=== PATIENT | male | born 1950 | race Caucasian/White ===

== ENCOUNTER 2016-06-01 16:30 | Emergency (ER) | payer MEDICARE, BC ==
[~2016-06-01] VITALS: Ht 180.3 cm; Wt 80.0 kg
[~2016-06-01 16:30] MED LIST: CETI10 PO; PROP1TAB PO; TAB-TAB PO; TRAM50TA PO
[2016-06-01 16:31] VITALS: BP 142/76; PULSE 126; RESP 16; TEMP 98.2; O2SAT 95
[2016-06-01 16:39] VITALS: PULSE 72; RESP 16; O2SAT 98
[2016-06-01] MEDS ORDERED: ROBA500T PO (16:58)
[2016-06-01] MEDS ORDERED: IBUP800T23 PO (16:58)
--- NOTE | 2016-06-01 16:59 | PD ---
HPI Chief Complaint: Back/ Neck Pain or Injury Time Seen by Provider: 16:57 Travel History International Travel<30 days: No Contact w/Intl Traveler<30days: No Traveled to known affect area: No History of Present Illness HPI 65-year-old male presents to the emergency Department with complaint of right- sided low back pain for the last 8 or 9 days. Denies injury or strain. Pain sometimes radiates down the back of his right leg, into his buttocks, into his groin area and when the pain is there sometimes into his right testicle. Denies testicular pain without radiation of low back pain. Denies encopresis, incontinence, saddle anesthesias. Denies abdominal pain, nausea, vomiting, change in urine or stool. Denies IV drug use, cancer. Denies fever, chills, nausea, vomiting. Denies paresthesias, loss of sensation, decreased range of motion, decreased strength to bilateral lower extremities. Denies change in gait or difficulty ambulating. Has taken small doses of tramadol with minimal relief of symptoms. Pain is aggravated with sitting, certain movements, laying on his right side. Pain is decreased while laying on his stomach. Allergies to pseudoephedrine, Sudafed, Zofran. Dr. Morley his primary care provider. No other modifying factors or associated signs and symptoms. 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) Hepatitis: No Hiatal Hernia: Yes Immune Disorder: No Musculoskeletal: Yes (L3 STENOSIS /BACK PAIN ) Neurologic: No Psychiatric: No Reproductive: No Respiratory: No Thyroid Disease: No Past Surgical History Abdominal Surgery: Yes (HERNIA REPAIR ) AICD: No Cardiac Surgery: No Ear Surgery: No Endocrine Surgery: No Eye Surgery: No Genitourinary Surgery: No Gynecologic Surgery: Yes (VASECTOMY) Joint Replacement: No Oral Surgery: No Pacemaker: No Thoracic Surgery: No Other Surgery: Yes (VASECTOMY ) Social History Alcohol Use: No Tobacco Use: No Substance Use: No Allergies-Medications (Allergen,Severity, Reaction): Coded Allergies: Pseudoephedrine (Unverified Allergy, Severe, 06/01/16) HALLUCINATIONS AND HIVES/BLISTERS Sudafed (Unverified Allergy, Severe, STOPS BREATHING, 06/01/16) Zofran (Unverified Allergy, Severe, "SEEING THINGS", 06/01/16) Reported Meds & Prescriptions Reported Meds & Active Scripts Active Ibuprofen 800 Mg Tab 800 Mg PO Q8H PRN Robaxin (Methocarbamol) 500 Mg Tab 500 Mg PO QID PRN Tramadol Hcl (Tramadol HCl) 50 Mg Tab 50 Mg PO Q6H PRN Propecia (Finasteride) 1 Mg Tab 1 Mg PO DAILY Reported Multivitamin (Multivitamins) 1 Tab Tab 1 Tab PO DAILY Zyrtec 10 Mg Tab (Cetirizine HCl) 10 Mg Tab 10 Mg PO DAILY Review of Systems Except as stated in HPI: all other systems reviewed are Neg Physical Exam Narrative GENERAL: Well-nourished, well-developed male patient, in no acute distress; afebrile, nontoxic-appearing SKIN: Warm and dry. HEAD: Atraumatic. Normocephalic. EYES: Pupils equal and round. No scleral icterus. No injection or drainage. ENT: Mucosa pink and moist. Airway patent. NECK: Trachea midline. CARDIOVASCULAR: Regular rate. RESPIRATORY: No accessory muscle use. GASTROINTESTINAL: Abdomen soft, non-tender, nondistended. Positive bowel sounds. No hepato-splenomegaly, or palpable masses. No guarding. MUSCULOSKELETAL: Bilateral lower extremities supple and non-tense with 2+ pedal pulses and sensory intact; with full range of motion and 5/5 strength. 2 + DTRs bilaterally. Active dorsiflexion and extension of bilateral feet. Bilateral straight leg raise is negative for low back pain. Ambulatory in room with normal gait. Sitting up in bed at 90. Right hip with full range of motion and without tenderness on abduction or palpation. No obvious deformities. No clubbing. No cyanosis. No edema. BACK: No midline point tenderness on palpation of the lumbar spine. Tenderness on palpation of right iliosacral area. No obvious deformities. NEUROLOGICAL: Awake and alert. Oriented 3. No obvious cranial nerve deficits. Motor grossly within normal limits. Normal speech. Moves all extremities. 5/5 strength to all extremities. Sensory intact. PSYCHIATRIC: Appropriate mood and affect; insight and judgment normal. Data Data Last Documented VS Vital Signs Date Time Temp Pulse Resp B/P Pulse Ox O2 Delivery O2 Flow Rate FiO2 06/01/16 16:39 72 16 98 06/01/16 16:31 98.2 142/76 Room Air Orders Ketorolac Inj (Toradol Inj) (06/01/16 17:00) Orphenadrine Inj (Norflex Inj) (06/01/16 17:00) [facility] Medical Decision Making Medical Screen Exam Complete: Yes Emergency Medical Condition: Yes Medical Record Reviewed: Yes Differential Diagnosis Low back strain, acute low back pain, sciatica Narrative Course 65-year-old male physical examination consistent with acute low back pain with right-sided sciatica. Denies encopresis, incontinence, saddle anesthesias. Patient is ambulatory in the room with a normal gait. No midline point tenderness on palpation of the lumbar spine. Reproducible tenderness to the right iliosacral area. Patient is afebrile and nontoxic-appearing. He denies fever, chills, nausea, vomiting. Denies IV drug use or cancer. Toradol and Norflex administered in the ER. Ibuprofen and Robaxin prescribed for home. Patient verbalizes understanding and agreement with treatment plan. Patient is medically cleared and stable for discharge. Discussed reasons to return to the emergency department. Instructed patient to follow up with primary care provider. Patient agrees with treatment plan. The patients vital signs are stable and the patient is stable for outpatient follow-up and treatment. Patient discharged home, stable and in no acute distress. Diagnosis Primary Impression: Acute low back pain with right-sided sciatica Qualified Code: M54.41 - Acute right-sided low back pain with right-sided sciatica Referrals: Primary Care Physician Patient Instructions: Acute Low Back Pain (ED), General Instructions, Sciatica (ED) Departure Forms: Tests/Procedures, Work Release Enter return to work date: Jun 06, 2016 Additional Instructions: Tylenol or ibuprofen as directed and as needed for pain Robaxin as prescribed and as needed for muscle spasm Heating pad and/or ice to affected area to reduce pain Avoid aggravating activities; increase activity as tolerated Follow-up with primary care provider Return to emergency department immediately with worsening of symptoms Med/Other Pt SpecificInfo: Prescription(s) given Scripts Ibuprofen 800 Mg [id number] Mg PO Q8H PRN (PAIN SCALE 1 TO 10) #30 TAB Ref 0 Prov:Naty Garcia 06/01/16 Methocarbamol (Robaxin)500 Mg Qon149 Mg PO QID PRN (MUSCLE SPASM) #30 TAB Ref 0 Prov:Naty Garcia 06/01/16 Disposition: 01 DISCHARGE HOME Condition: Stable Naty Garcia Jun 01, 2016 16:59
[2016-06-01] MEDS ORDERED: KETOROLAC TROMETHAMINE 60 MG/2 ML (IM) VIAL IM ONE (17:00)
[2016-06-01] MEDS ORDERED: ORPHENADRINE INJ 60 MG/2 ML AMP IM ONE (17:00)
[2016-06-27] MEDS ORDERED: FINA1TAB16 PO (10:23)
== END 2016-06-01 18:40 | disposition home or self-care (01) ==
LOC: NEPB 16:30
DX: M54.41 Lumbago with sciatica, right side (principal)
CPT/HCPCS: 96372; 99283; J1885; J2360

== ENCOUNTER 2017-04-14 23:51 | Emergency (ER) | payer MEDICARE, BC ==
[~2017-04-14] VITALS: Ht 180.3 cm; Wt 80.0 kg
[~2017-04-14 23:51] MED LIST changes: -CETI10 PO; +FINA1TAB16 PO; +FLUT1SPR5 EACH NARE; +GABA100C4 PO; +IBUP1TAB5 PO; +IOHEXOL 350 MG/ML 10 ML VIAL (for RAD DIAG) IVCONTRAST ONE; -PROP1TAB PO; -TAB-TAB PO; -TRAM50TA PO
[2017-04-15 00:15] VITALS: BP 132/85; PULSE 78; RESP 18; TEMP 98.4; O2SAT 98
[2017-04-15] MEDS ORDERED: SODIUM CHLOR 0.9% 1000 ML INJ 1,000 ML IV ONE (00:15)
[2017-04-15 00:30] LABS: AUTOMATED NEUTROPHIL # 2.4 TH/MM3 (1.8-7.7); BASOPHIL % 0.3 % (0.0-2.0); EOSINOPHIL # 0.1 TH/MM3 (0-0.4); EOSINOPHIL % 1.4 % (0.0-4.0); HEMATOCRIT 43.6 % (39.0-51.0); HEMOGLOBIN 14.9 GM/DL (13.0-17.0); LYMPH % 31.5 % (9.0-44.0); LYMPHOCYTE # 1.4 TH/MM3 (1.0-4.8); MEAN CELL VOLUME 92.9 FL (80.0-100.0); MEAN CORPUSCULAR HEMOGLOBIN 31.6 PG (27.0-34.0); MEAN CORPUSCULAR HGB CONC 34.1 % (32.0-36.0); MEAN PLATELET VOLUME 7.9 FL (7.0-11.0); MONO % 11.1 % (0.0-8.0); MONOCYTE # 0.5 TH/MM3 (0-0.9); NEUT % 55.7 % (16.0-70.0); PLATELET COUNT 195 TH/MM3 (150-450); RED CELL DISTRIBUTION WIDTH 12.4 % (11.6-17.2); WHITE BLOOD COUNT 4.3 TH/MM3 (4.0-11.0)
[2017-04-15] MEDS ORDERED: PIPERACIL-TAZO 4.5 GM PREMIX 100 ML IV ONE (00:30)
--- NOTE | 2017-04-15 00:37 | PD ---
HPI Chief Complaint: Abdominal Pain Time Seen by Provider: 00:09 Travel History International Travel<30 days: No Contact w/Intl Traveler<30days: No Traveled to known affect area: No History of Present Illness HPI 66-year-old white male presents to emergency Department with complaints of abdominal pain. He states that he started off with some mild upper abdominal discomfort this morning. He states that the pain now has progressively intensified. It has been waxing and waning in intensity. He states the pain is moderate and rates the pain a 4-5/10. The pain now seems to be traveling across the left upper abdomen. Patient states that he has had a history of diverticulitis in the past and that this seems reminiscent of a episode of the past. He admits to some nausea but no vomiting. He's had a slight decrease in appetite. He denies any fever or chills. No chest pain or shortness of breath. No dysuria, frequency, melena, hematochezia, diarrhea. No testicular or scrotal pain. No alleviating or exacerbating activities. Patient does make note that he had just gotten over flu like symptoms this past week. This had just gotten better yesterday PFSH Past Medical History Narrative Medical Renal cyst with removal, Diverticulitis, hiatal hernia, spinal stenosis Cancer: No Cardiovascular Problems: No Diabetes: No Diminished Hearing: No Endocrine: No Gastrointestinal Disorders: Yes (HERNIA) Genitourinary: Yes (CYST ON KIDNEY) Hepatitis: No Hiatal Hernia: Yes Immune Disorder: No Musculoskeletal: Yes (L3 STENOSIS /BACK PAIN ) Neurologic: No Psychiatric: No Reproductive: No Respiratory: No Tetanus Vaccination: < 5 Years Past Surgical History Narrative Surgical Renal cyst with surgical removal, bilateral herniorrhaphy Abdominal Surgery: Yes ("HERNIA REPAIR X2, KIDNEY CYST") AICD: No Cardiac Surgery: No Ear Surgery: No Endocrine Surgery: No Eye Surgery: No Genitourinary Surgery: No Gynecologic Surgery: Yes (VASECTOMY) Joint Replacement: No Oral Surgery: No Pacemaker: No Thoracic Surgery: No Other Surgery: Yes (VASECTOMY ) Social History Alcohol Use: No Tobacco Use: No Substance Use: No Allergies-Medications (Allergen,Severity, Reaction): Coded Allergies: ondansetron (Unverified Allergy, Severe, "SEEING THINGS", 04/14/17) pseudoephedrine (Unverified Allergy, Severe, STOPS BREATHING, 04/14/17) HALLUCINATIONS AND HIVES/BLISTERS Reported Meds & Prescriptions Reported Meds & Active Scripts Active Gabapentin 100 Mg Cap 100 Mg PO BID Ibuprofen 400 Mg Tab 400 Mg PO Q8H PRN Flonase Nasal Starke (Fluticasone Nasal Starke) 50 Mcg/Act Starke 100 Mcg EACH NARE BID Finasteride (Finasteride (Alopecia)) 1 Mg Tab 1 Mg PO DAILY Review of Systems Except as stated in HPI: all other systems reviewed are Neg Physical Exam Narrative GENERAL: Well-developed, well-nourished in no apparent distress. Nontoxic appearing. HEAD: Normocephalic, atraumatic. EYES: Pupils equal round and reactive. Extraocular motions intact. No scleral icterus. No injection or drainage. ENT: Nose clear. Throat without erythema, tonsillar hypertrophy or exudate. Uvula midline. Airway patent. NECK: Trachea midline. Supple, nontender, moves head freely. No central bony tenderness or spasm. CARDIOVASCULAR: Regular rate and rhythm without murmurs, gallops, or rubs. RESPIRATORY: Clear to auscultation. Breath sounds equal bilaterally. No wheezes , rales, or rhonchi. GASTROINTESTINAL: Abdomen soft, mild tenderness in the epigastric and left upper quadrant to deep palpation, nondistended. No hepato-splenomegaly, or palpable masses. No guarding. EXTREMITIES: No clubbing, cyanosis, or edema. No joint tenderness. BACK: Nontender without deformity. No flank tenderness. NEUROLOGICAL: Awake, alert and oriented x 3 .Cranial nerves grossly intact. Motor and sensory grossly within normal limits. Normal speech. Data Data Last Documented VS Vital Signs Date Time Temp Pulse Resp B/P (MAP) Pulse Ox O2 Delivery O2 Flow Rate FiO2 04/15/17 00:15 98.4 78 18 132/85 (101) 98 Orders Orders Electrocardiogram (04/15/17 00:10) Complete Blood Count With Diff (04/15/17 00:10) Comprehensive Metabolic Panel (04/15/17 00:10) Lipase (04/15/17 00:10) Urinalysis - C+S If Indicated (04/15/17 00:10) Iv Access Insert/Monitor (04/15/17 00:10) Ecg Monitoring (04/15/17 00:10) Sodium Chlor 0.9% 1000 Ml Inj (Ns 1000 M (2/3/18 00:15) Fentanyl Inj (Fentanyl Inj) (04/15/17 00:30) Piperacil-Tazo 4.5 Gm Premix (Zosyn 4.5 (04/15/17 00:30) Labs Laboratory Tests Test 04/15/17 00:15 White Blood Count 4.3 TH/MM3 Red Blood Count 4.70 MIL/MM3 Hemoglobin 14.9 GM/DL Hematocrit 43.6 % Mean Corpuscular Volume 92.9 FL Mean Corpuscular Hemoglobin 31.6 PG Mean Corpuscular Hemoglobin Concent 34.1 % Red Cell Distribution Width 12.4 % Platelet Count 195 TH/MM3 Mean Platelet Volume 7.9 FL Neutrophils (%) (Auto) 55.7 % Lymphocytes (%) (Auto) 31.5 % Monocytes (%) (Auto) 11.1 % Eosinophils (%) (Auto) 1.4 % Basophils (%) (Auto) 0.3 % Neutrophils # (Auto) 2.4 TH/MM3 Lymphocytes # (Auto) 1.4 TH/MM3 Monocytes # (Auto) 0.5 TH/MM3 Eosinophils # (Auto) 0.1 TH/MM3 Basophils # (Auto) 0.0 TH/MM3 CBC Comment DIFF FINAL Differential Comment MDM Medical Decision Making Medical Screen Exam Complete: Yes Emergency Medical Condition: Yes Medical Record Reviewed: Yes Differential Diagnosis MDM: High Differential diagnoses: Acute appendicitis, acute pancreatitis, diverticulitis, colitis Narrative Course IV access is obtained. Patient is given a liter bolus normal saline, Zofran 4 mg IV, 25 g of fentanyl IV, Zosyn 4.5 g IV. Routine laboratory tests including a UA, CBC, chemistry and CT of the abdomen Soy Brown Apr 15, 2017 00:37
[2017-04-15 00:48] LABS: AST (GOT) 18 U/L (15-37); BICARBONATE 34.7 MEQ/L (21.0-32.0); BLOOD UREA NITROGEN 11 MG/DL (7-18); CALCIUM 9.2 MG/DL (8.5-10.1); CHLORIDE 99 MEQ/L (98-107); CREATININE 0.82 MG/DL (0.60-1.30); GLOMERULAR FILTRATION RATE 93 ML/MIN (>89); GLUCOSE,RANDOM 103 MG/DL (74-106); SODIUM (NA) 139 MEQ/L (136-145)
[2017-04-15 00:51] LABS: ALKALINE PHOSPHATASE 44 U/L (45-117); ALT (GPT) 19 U/L (12-78); TOTAL BILIRUBIN ADULT 0.7 MG/DL (0.2-1.0); TOTAL PROTEIN 7.3 GM/DL (6.4-8.2)
[2017-04-15 01:05] LABS: BILIRUBIN, URINE NEG (NEG); BLOOD, URINE NEG (NEG); GLUCOSE,URINE NEG (NEG); KETONE, URINE NEG (NEG); NITRITE,URINE NEG (NEG); URINE COLOR YELLOW (YELLW/STRAW); URINE LEUKOCYTE ESTERASE NEG (NEG)
[2017-04-15] MEDS ORDERED: IOHEXOL 350 MG/ML 10 ML VIAL (for RAD DIAG) IVCONTRAST ONE (02:41)
--- NOTE | 2017-04-15 02:53 | RADRPT ---
EXAM DATE/TIME: 04/15/2017 02:36 [place] COMPARISON: No previous studies available for comparison. INDICATIONS : Left sided abdominal pain. IV CONTRAST: 97 cc Omnipaque 350 (iohexol) IV ORAL CONTRAST: No oral contrast ingested. RADIATION DOSE: 6.64 CTDIvol (mGy) MEDICAL HISTORY : Hernia, hiatal. SURGICAL HISTORY : Hernia repair. ENCOUNTER: Initial ACUITY: 1 day PAIN SCALE: 8/10 LOCATION: Left abdomen TECHNIQUE: Volumetric scanning of the abdomen and pelvis was performed. Using automated exposure control and ad justment of the mA and/or kV according to patient size, radiation dose was kept as low as reasonably achievable to obtain optimal diagnostic quality images. DICOM format image data is available electro nically for review and comparison. FINDINGS: A calcified granuloma is noted in the right middle lobe measuring 9.5 mm. No pleural or pericardial e ffusions are seen. Hepatic steatosis. The spleen, pancreas, adrenals, gallbladder unremarkable. Benig n appearing cyst upper pole right kidney measuring 2.9 cm. There is also a large simple cyst off the right lower pole laterally measuring 6.7 cm. At the upper pole of the left kidney a mixed attenuation mass is identified measuring 3.6 x 3.6 cm in transverse and AP dimension. There is a remote history of CT-guided alcohol ablation of a left renal mass. There is a fat fluid level seen within the urinar y bladder. There is diverticulosis of the sigmoid colon and descending colon without evidence of dive rticulitis. Appendix is normal. Prostate measures 5 x 3.6 cm in transverse and AP dimension. There is circumferential bowel wall thickening seen at the level of the rectum which may reflect a colitis. O sseous structures are intact. CONCLUSION: Abnormal bowel wall thickening involving the rectum identified which can be seen with a colitis. Dive rticulosis is also seen of the sigmoid and descending colon. Renal cysts. Atherosclerosis. Fat fluid level is seen within the urinary bladder characteristic of chyluria. Alvaro Hogue MD on April 15, 2017 at 2:45 Board Certified Radiologist. This report was verified electronically.
[2017-04-15] MEDS ORDERED: AUGM875T3 PO (03:07)
[2017-04-15] MEDS ORDERED: METR-1 PO (03:07)
[2017-04-15] MEDS ORDERED: DEXAMETHASONE SOD PHOS 20 MG/5 ML VIAL IV PUSH ONE (03:15)
--- NOTE | 2017-04-15 13:54 | EKG ---
Date Performed: 04/15/2017 Time Performed: 00:32:12 PTAGE: 66 years EKG: SINUS BRADYCARDIA WITH OCCASIONAL SUPRAVENTRICULAR PREMATURE COMPLEXES INCOMPLETE RIGHT BUN DLE BRANCH BLOCK BORDERLINE ECG NO PREVIOUS TRACING DOCTOR: Ken Dacosta Interpretating Date/Time 04/15/2017 13:54:22
== END 2017-04-15 03:19 | disposition home or self-care (01) ==
LOC: NEPD 23:51
DX: K57.92 Diverticulitis of intestine, part unspecified, without perforation or abscess without bleeding (principal); K52.9 Noninfective gastroenteritis and colitis, unspecified; R94.31 Abnormal electrocardiogram [ECG] [EKG]; Z88.8 Allergy status to other drugs, medicaments and biological substances
CPT/HCPCS: 74177; 80053; 81001; 83690; 85025; 93005; 96361; 96365; 96375; 99285; J1100; J2543; J3010; J7030; Q9967

== ENCOUNTER 2017-04-20 14:03 | Emergency (ER) | payer MEDICARE, BC ==
[~2017-04-20] VITALS: Ht 180.3 cm; Wt 77.3 kg
[~2017-04-20 14:03] MED LIST changes: +AUGM875T3 PO; -IOHEXOL 350 MG/ML 10 ML VIAL (for RAD DIAG) IVCONTRAST ONE; +METR-1 PO
[2017-04-20 14:05] VITALS: BP 139/83; PULSE 154; RESP 18; TEMP 97.9; O2SAT 98
[2017-04-20 14:28] VITALS: RESP 16; O2SAT 98
[2017-04-20 14:30] VITALS: BP_SYST 107; BP_SYST 132; BP_DIAS 68; BP_DIAS 72; PULSE 113; RESP 16
[2017-04-20] MEDS ORDERED: SODIUM CHLORIDE 0.9% FLUSH 10 ML FLUSH IVF PRN (14:30)
[2017-04-20] MEDS ORDERED: SODIUM CHLORID 0.9% 500 ML INJ 500 ML IV ONE (14:30)
[2017-04-20] MEDS ORDERED: DILTIAZEM HCL 25 MG/5 ML VIAL IV ONE (14:30)
[2017-04-20] MEDS ORDERED: ASPIRIN 81 MG CHEW TAB PO ONE (14:30)
--- NOTE | 2017-04-20 14:41 | PD ---
HPI Chief Complaint: Cardiac Complaint Time Seen by Provider: 14:15 Travel History International Travel<30 days: No Contact w/Intl Traveler<30days: No Traveled to known affect area: No History of Present Illness HPI The patient is a 66-year-old male who presents to the emergency department for lightheadedness, dizziness, and palpitations with elevated heart rate. The patient states his symptoms started in the middle the night, have been constant, there are no alleviating or exacerbating factors. The patient was recently treated for diverticulitis and is currently taking antibiotics. He does have a history of similar symptoms after previous colonoscopy, was advised it may be secondary to dehydration. He had an outpatient Holter monitor at that time, was unremarkable. He is not currently on any rate limiting drugs for A. fib or a flutter. The patient's primary physician was Dr. Sis Morley, he now sees Dr. Michelle. The patient denies any chest , shortness breath, nausea, vomiting, does note mild left lower quadrant abdominal pain secondary to diverticulitis which has improved over the last 24 hours. He denies any known history of hypertension, hyperlipidemia, tobacco use , CHF, or diabetes. 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) Hepatitis: No Hiatal Hernia: Yes Immune Disorder: No Musculoskeletal: Yes (L3 STENOSIS /BACK PAIN ) Neurologic: No Psychiatric: No Reproductive: No Respiratory: No Tetanus Vaccination: > 5 Years Influenza Vaccination: Yes Past Surgical History Abdominal Surgery: Yes ("HERNIA REPAIR X2, KIDNEY CYST") AICD: No Cardiac Surgery: No Ear Surgery: No Endocrine Surgery: No Eye Surgery: No Genitourinary Surgery: No Gynecologic Surgery: Yes (VASECTOMY) Joint Replacement: No Oral Surgery: No Pacemaker: No Thoracic Surgery: No Other Surgery: Yes (VASECTOMY ) Social History Alcohol Use: No Tobacco Use: No Substance Use: No Allergies-Medications (Allergen,Severity, Reaction): Coded Allergies: ondansetron (Unverified Allergy, Severe, "SEEING THINGS", 04/20/17) pseudoephedrine (Unverified Allergy, Severe, STOPS BREATHING, 04/20/17) HALLUCINATIONS AND HIVES/BLISTERS Reported Meds & Prescriptions Reported Meds & Active Scripts Active Flagyl (Metronidazole) 500 Mg Tab 500 Mg PO TID 10 Days Augmentin (Amoxicillin-Clavulanate) 875-125 Mg Tab 1 Tab PO BID 10 Days Gabapentin 100 Mg Cap 100 Mg PO BID Finasteride (Finasteride (Alopecia)) 1 Mg Tab 1 Mg PO DAILY Review of Systems Except as stated in HPI: all other systems reviewed are Neg General / Constitutional: No: Fever HENT: Positive: Lightheadedness Cardiovascular: Positive: Palpitations, Tachycardia, No: Chest Pain or Discomfort, Irregular Rhythm, Diaphoresis Respiratory: No: Shortness of Breath Gastrointestinal: Positive: Abdominal Pain, No: Nausea, Vomiting Musculoskeletal: No: Weakness Neurologic: Positive: Dizziness, No: Weakness, Change in Mentation Physical Exam Narrative GENERAL: Awake, alert, pleasant 66-year-old male who appears his stated age and is in no acute respiratory distress. SKIN: Focused skin assessment warm/dry. HEAD: Atraumatic. Normocephalic. EYES: Pupils equal and round. No scleral icterus. No injection or drainage. ENT: No nasal bleeding or discharge. Mucous membranes pink and moist. NECK: Trachea midline. No JVD. CARDIOVASCULAR: Regular, tachycardic with a heart rate of 150. RESPIRATORY: No accessory muscle use. Clear to auscultation. Breath sounds equal bilaterally. GASTROINTESTINAL: Abdomen soft, non-tender, nondistended. No rebound tenderness. MUSCULOSKELETAL: No obvious deformities. No clubbing. No cyanosis. No edema. NEUROLOGICAL: Awake and alert. No obvious cranial nerve deficits. Motor grossly within normal limits. Normal speech. Nonfocal. PSYCHIATRIC: Appropriate mood and affect; insight and judgment normal. Data Data Last Documented VS Vital Signs Date Time Temp Pulse Resp B/P (MAP) Pulse Ox O2 Delivery O2 Flow Rate FiO2 04/20/17 15:30 97.7 70 15 111/71 (84) 99 Room Air Orders Orders Electrocardiogram (04/20/17 14:23) Ckmb (Isoenzyme) Profile (04/20/17 14:23) Complete Blood Count With Diff (04/20/17 14:23) Comprehensive Metabolic Panel (04/20/17 14:23) Magnesium (Mg) (04/20/17 14:23) Prothrombin Time / Inr (Pt) (04/20/17 14:23) Act Partial Throm Time (Ptt) (04/20/17 14:23) Troponin I (04/20/17 14:23) Chest, Single Ap (04/20/17 14:23) Ecg Monitoring (04/20/17 14:23) Bilateral Bp Monitoring (04/20/17 14:23) Iv Access Insert/Monitor (04/20/17 14:23) Oximetry (04/20/17 14:23) Oxygen Administration (04/20/17 14:23) Aspirin Chew (Aspirin Chew) (04/20/17 14:30) Sodium Chloride 0.9% Flush (Ns Flush) (04/20/17 14:30) Sodium Chlorid 0.9% 500 Ml Inj (Ns 500 M (04/20/17 14:30) Thyroid Stimulating Hormone (04/20/17 14:23) Diltiazem Inj (Cardizem Inj) (04/20/17 14:30) Labs Laboratory Tests Test 04/20/17 14:20 White Blood Count 8.4 TH/MM3 Red Blood Count 5.23 MIL/MM3 Hemoglobin 16.6 GM/DL Hematocrit 48.6 % Mean Corpuscular Volume 92.8 FL Mean Corpuscular Hemoglobin 31.6 PG Mean Corpuscular Hemoglobin Concent 34.1 % Red Cell Distribution Width 12.6 % Platelet Count 308 TH/MM3 Mean Platelet Volume 8.0 FL Neutrophils (%) (Auto) 62.2 % Lymphocytes (%) (Auto) 22.6 % Monocytes (%) (Auto) 13.7 % Eosinophils (%) (Auto) 1.2 % Basophils (%) (Auto) 0.3 % Neutrophils # (Auto) 5.2 TH/MM3 Lymphocytes # (Auto) 1.9 TH/MM3 Monocytes # (Auto) 1.1 TH/MM3 Eosinophils # (Auto) 0.1 TH/MM3 Basophils # (Auto) 0.0 TH/MM3 CBC Comment DIFF FINAL Differential Comment Prothrombin Time 11.1 SEC Prothromb Time International Ratio 1.1 RATIO Activated Partial Thromboplast Time 25.2 SEC Blood Urea Nitrogen 13 MG/DL Creatinine 0.94 MG/DL Random Glucose 104 MG/DL Total Protein 7.3 GM/DL Albumin 3.6 GM/DL Calcium Level 8.2 MG/DL Magnesium Level 2.1 MG/DL Alkaline Phosphatase 45 U/L Aspartate Amino Transf (AST/SGOT) 67 U/L Alanine Aminotransferase (ALT/SGPT) 104 U/L Total Bilirubin 0.5 MG/DL Sodium Level 139 MEQ/L Potassium Level 3.9 MEQ/L Chloride Level 104 MEQ/L Carbon Dioxide Level 29.3 MEQ/L Anion Gap 6 MEQ/L Estimat Glomerular Filtration Rate 80 ML/MIN Total Creatine Kinase 77 U/L Troponin I LESS THAN 0.02 NG/ML Thyroid Stimulating Hormone 3rd Gen 1.150 uIU/ML MDM Medical Decision Making Medical Screen Exam Complete: Yes Emergency Medical Condition: Yes Medical Record Reviewed: Yes Interpretation(s) EKG reveals atrial flutter with RVR, rate 150. EKG #2 reveals sinus rhythm with sinus arrhythmia, rate in the 70s. RSR prime V1. Last Impressions Chest X-Ray 04/20/17 1423 Signed Impressions: Service Date/Time: , April 20, 2017 14:51 - CONCLUSION: 1. Stable granulomas type calcifications laterally in the right base. 2. No acute cardiopulmonary process. Lungs are otherwise clear. Nav Campbell MD Laboratory Tests Test 04/20/17 14:20 White Blood Count 8.4 TH/MM3 Red Blood Count 5.23 MIL/MM3 Hemoglobin 16.6 GM/DL Hematocrit 48.6 % Mean Corpuscular Volume 92.8 FL Mean Corpuscular Hemoglobin 31.6 PG Mean Corpuscular Hemoglobin Concent 34.1 % Red Cell Distribution Width 12.6 % Platelet Count 308 TH/MM3 Mean Platelet Volume 8.0 FL Neutrophils (%) (Auto) 62.2 % Lymphocytes (%) (Auto) 22.6 % Monocytes (%) (Auto) 13.7 % Eosinophils (%) (Auto) 1.2 % Basophils (%) (Auto) 0.3 % Neutrophils # (Auto) 5.2 TH/MM3 Lymphocytes # (Auto) 1.9 TH/MM3 Monocytes # (Auto) 1.1 TH/MM3 Eosinophils # (Auto) 0.1 TH/MM3 Basophils # (Auto) 0.0 TH/MM3 CBC Comment DIFF FINAL Differential Comment Prothrombin Time 11.1 SEC Prothromb Time International Ratio 1.1 RATIO Activated Partial Thromboplast Time 25.2 SEC Blood Urea Nitrogen 13 MG/DL Creatinine 0.94 MG/DL Random Glucose 104 MG/DL Total Protein 7.3 GM/DL Albumin 3.6 GM/DL Calcium Level 8.2 MG/DL Magnesium Level 2.1 MG/DL Alkaline Phosphatase 45 U/L Aspartate Amino Transf (AST/SGOT) 67 U/L Alanine Aminotransferase (ALT/SGPT) 104 U/L Total Bilirubin 0.5 MG/DL Sodium Level 139 MEQ/L Potassium Level 3.9 MEQ/L Chloride Level 104 MEQ/L Carbon Dioxide Level 29.3 MEQ/L Anion Gap 6 MEQ/L Estimat Glomerular Filtration Rate 80 ML/MIN Total Creatine Kinase 77 U/L Troponin I LESS THAN 0.02 NG/ML Thyroid Stimulating Hormone 3rd Gen 1.150 uIU/ML Differential Diagnosis Differential diagnoses includes atrial flutter, atrial fibrillation, SVT, electrolyte abnormality, dehydration, symptomatic anemia, pulmonary most, hyperthyroidism, cardiomyopathy. Narrative Course IV was established, labs are drawn and sent, and the patient was placed on cardiac telemetry monitoring and continuous pulse oximetry monitoring. EKG was ordered and interpreted. Chest x-ray was obtained. TSH was sent to lab. The patient was administered 1 dose of Cardizem 15 mg intravenously, his heart rate came down into the 90s, repeat EKG was performed. The patient did receive aspirin 162 mg orally. Chest x-ray was unremarkable. Repeat EKG reveals the patient is back in a sinus rhythm with occasional sinus arrhythmia. No evidence of underlying atrial fibrillation. The patient initially had atrial flutter with 21 block and a rate of 150, after Cardizem and he converted to a sinus rhythm. TSH is normal. Electrolytes are unremarkable. Patient's symptoms have improved. The patient is stable for outpatient follow-up, he will need outpatient echocardiogram. The patient will be placed on Lopressor 12.5 mg twice a day and baby aspirin daily. He is advised to follow-up with his primary physician. He will be provided a copy of his EKGs and lab results at discharge. Diagnosis Primary Impression: Atrial flutter Qualified Codes: I48.92 - Unspecified atrial flutter Additional Impression: Tachyarrhythmia Patient Instructions: General Instructions Additional Instructions: Please provide the patient a copy of both EKGs and lab results at discharge. Take a baby aspirin daily and metoprolol as directed. Follow-up with your primary physician, you may benefit from outpatient echocardiogram and/or cardiology evaluation. Return if symptoms worsen or progress. Med/Other Pt SpecificInfo: Prescription(s) given Scripts Aspirin (Aspirin) 81 Mg Chew 81 MG CHEW DAILY for 30 Days, #30 TAB 0 Refills Prov: Savage Puente MD 04/20/17 Metoprolol Tartrate (Metoprolol Tartrate) 25 Mg Tab 12.5 MG PO BID, #60 TAB 0 Refills Prov: Savage Puente MD 04/20/17 Disposition: 01 DISCHARGE HOME Condition: Stable Savage Puente MD Apr 20, 2017 14:41
[2017-04-20 14:54] LABS: AUTOMATED NEUTROPHIL # 5.2 TH/MM3 (1.8-7.7); BASOPHIL % 0.3 % (0.0-2.0); EOSINOPHIL # 0.1 TH/MM3 (0-0.4); EOSINOPHIL % 1.2 % (0.0-4.0); HEMATOCRIT 48.6 % (39.0-51.0); HEMOGLOBIN 16.6 GM/DL (13.0-17.0); LYMPH % 22.6 % (9.0-44.0); LYMPHOCYTE # 1.9 TH/MM3 (1.0-4.8); MEAN CELL VOLUME 92.8 FL (80.0-100.0); MEAN CORPUSCULAR HEMOGLOBIN 31.6 PG (27.0-34.0); MEAN CORPUSCULAR HGB CONC 34.1 % (32.0-36.0); MONO % 13.7 % (0.0-8.0); MONOCYTE # 1.1 TH/MM3 (0-0.9); NEUT % 62.2 % (16.0-70.0); PLATELET COUNT 308 TH/MM3 (150-450); RED BLOOD COUNT 5.23 MIL/MM3 (4.50-5.90); RED CELL DISTRIBUTION WIDTH 12.6 % (11.6-17.2); WHITE BLOOD COUNT 8.4 TH/MM3 (4.0-11.0)
[2017-04-20 14:59] LABS: INTERNATIONAL NORMALIZED RATIO 1.1 RATIO; PROTHROMBIN TIME - PATIENT 11.1 SEC (9.8-11.6)
[2017-04-20 15:10] LABS: ALBUMIN 3.6 GM/DL (3.4-5.0); ALT (GPT) 104 U/L (12-78); AST (GOT) 67 U/L (15-37); BICARBONATE 29.3 MEQ/L (21.0-32.0); BLOOD UREA NITROGEN 13 MG/DL (7-18); CALCIUM 8.2 MG/DL (8.5-10.1); CHLORIDE 104 MEQ/L (98-107); CREATININE 0.94 MG/DL (0.60-1.30); GLOMERULAR FILTRATION RATE 80 ML/MIN (>89); GLUCOSE,RANDOM 104 MG/DL (74-106); MAGNESIUM 2.1 MG/DL (1.5-2.5); SODIUM (NA) 139 MEQ/L (136-145)
[2017-04-20 15:22] LABS: ALKALINE PHOSPHATASE 45 U/L (45-117); TOTAL BILIRUBIN ADULT 0.5 MG/DL (0.2-1.0); TOTAL PROTEIN 7.3 GM/DL (6.4-8.2); TROPONIN I LESS THAN 0.02 NG/ML (0.02-0.05)
[2017-04-20 15:30] VITALS: BP 111/71; PULSE 70; RESP 15; TEMP 97.7; O2SAT 99
--- NOTE | 2017-04-20 15:37 | RADRPT ---
EXAM DATE/TIME: 04/20/2017 14:51 [facility] COMPARISON: CHEST SINGLE AP, January 27, 2015, 14:04. INDICATIONS : Chest pain and rapid heart beat since afternoon. MEDICAL HISTORY : Hiatal hernia. SURGICAL HISTORY : Hernia repair. ENCOUNTER: Initial ACUITY: 1 day PAIN SCORE: 2/10 LOCATION: Bilateral chest FINDINGS: A single view of the chest demonstrates the lungs to be symmetrically aerated without evidence of inf iltrate or effusion. Stable granulomas type calcification laterally in the right base. The cardiomed iastinal contours are unremarkable. Osseous structures are intact. CONCLUSION: 1. Stable granulomas type calcifications laterally in the right base. 2. No acute cardiopulmonary process. Lungs are otherwise clear. Nav Campbell MD on April 20, 2017 at 15:32 Board Certified Radiologist. This report was verified electronically.
[2017-04-20] MEDS ORDERED: ASPI-516 CHEW (16:06)
[2017-04-20] MEDS ORDERED: METO25TA3 PO (16:06)
[2017-04-20 16:17] VITALS: BP 92/55; TEMP 97.8
[2017-04-20 16:40] VITALS: BP 112/73; TEMP 97.8
--- NOTE | 2017-04-21 14:30 | EKG ---
Date Performed: 04/20/2017 Time Performed: 14:16:10 PTAGE: 66 years EKG: ATRIAL FLUTTER/TACHYCARDIA WITH RAPID VENTRICULAR RESPONSE ABNORMAL RHYTHM ECG Compared to PREVIOUS TRACING , the patient has developed atrial flutter with a rapid ventricular resp onse. Nonspecific T-wave changes are new as well. PREVIOUS TRACIN04/15/2017 00.32 DOCTOR: Elle Crocker Interpretating Date/Time 04/21/2017 14:26:57
--- NOTE | 2017-04-21 14:32 | EKG ---
Date Performed: 04/20/2017 Time Performed: 14:39:36 PTAGE: 66 years EKG: Sinus rhythm WITH SINUS ARRHYTHMIA POSSIBLE RIGHT VENTRICULAR CONDUCTION DELAY BORDERLINE ECG Compared to PREVIOUS TRACING , the atrial flutter and the nonspecific T-wave changes have resolved. C linical correlation is advised. PREVIOUS TRACIN04/20/2017 14.16 DOCTOR: Elle Crocker Interpretating Date/Time 04/21/2017 14:27:33
== END 2017-04-20 16:35 | disposition home or self-care (01) ==
LOC: NEPE 14:03
DX: I48.92 Unspecified atrial flutter (principal); K57.92 Diverticulitis of intestine, part unspecified, without perforation or abscess without bleeding; R10.32 Left lower quadrant pain
CPT/HCPCS: 71045; 80053; 82550; 83735; 84443; 84484; 85025; 85610; 85730; 93005; 96361; 96374; 99285; J7040